=== PATIENT | female | born 1970 | race Caucasian/White ===

== ENCOUNTER 2020-10-01 02:56 | Outpatient (CLI) | payer BC, SELFPAY ==
[2020-10-01 07:54] LABS: Abs Immature Grans 0.01 10^3/uL (0.0-0.06); Absolute Basophil Count 0.02 10^3/uL (0.0-0.2); Absolute Eosinophil Count 0.03 10^3/uL (0.0-0.7); Absolute Lymphocyte Count 1.15 10^3/uL (1.2-3.4); Absolute Monocyte Count 0.41 10^3/uL (0.1-0.8); Absolute Neutrophil Count 2.58 10^3/uL (1.2-6.7); Basophils % 0.5; Eosinophils % 0.7; HCT 34.6 % (36.0-46.0); HGB 11.4 g/dL (11.2-15.7); Immature Grans % 0.2; Lymphocytes % 27.4; MCH 28.3 pg (27.0-33.0); MCHC 32.9 % (32.0-36.0); MCV 85.9 fL (80-95); MPV 11.1 fL (8.0-11.0); Monocytes % 9.8; Neutrophils % 61.4; Nucleated RBC 0 %; Platelet Count 282 10^3/uL (130-400); RBC 4.03 10^6/uL (3.93-5.22); RDW 14.6 % (11.7-14.6); RDW-SD 45.2 fL
[2020-10-01 08:42] LABS: Anion Gap 13.6 mmol/L (3-11); BUN 19 mg/dL (7-18); CO2 23.4 mmol/L (21.0-32.0); CREATININE 0.64 mg/dL (0.55-1.02); Calcium 8.8 mg/dL (8.5-10.1); Calculated LDL 111 mg/dL (<100); Chloride 104 mmol/L (98-107); Cholesterol 200 mg/dL (<200); Glucose 124 mg/dL (74-106); HDL Cholesterol 75 mg/dL (40-60); Potassium 4.3 mmol/L (3.5-5.1); Sodium 141 mmol/L (136-145); Triglyceride 72 mg/dL (<150)
== END 2020-10-01 03:16 ==
PROVIDERS: PCP Family Medicine; Visit Provider Family Medicine
DX: D64.9 Anemia, unspecified (principal); Z13.1 Encounter for screening for diabetes mellitus; Z13.6 Encounter for screening for cardiovascular disorders
CPT/HCPCS: 36415; 80048; 80061; 85025

== ENCOUNTER 2020-10-06 04:13 | Outpatient (CLI) | payer BC, SELFPAY ==
[2020-10-06 09:20] LABS: Hemoglobin A1C 5.7 % (<5.7)
== END 2020-10-06 04:33 ==
PROVIDERS: PCP Family Medicine; Visit Provider Family Medicine
DX: R73.9 Hyperglycemia, unspecified (principal)
CPT/HCPCS: 36415; 83036

== ENCOUNTER 2022-02-08 01:56 | Outpatient (CLI) | payer BC, SELFPAY ==
[2022-02-08] MEDS: Normal Saline Flush 10 ML SYR IVP (08:01)
[2022-02-08] MEDS: Gadoterate meglumine 20 ML VIAL 13 ML IVP (08:01)
--- NOTE | 2022-02-08 08:42 | DI.MRI_ITS ---
Exam(s) MR IAC BRAIN WO/W EXAM: MR IAC BRAIN WO/W CLINICAL HISTORY: Left sensorineural hearing loss, tinnitus lt ear, vertigo. TECHNIQUE: Multiplanar multisequence MRI of the brain and internal auditory canals was performed. CONTRAST MATERIAL: IV Contrast: 13 mL of Magnevist contrast administered. COMPARISON: No exams were available for comparison FINDINGS: VENTRICLES AND EXTRA AXIAL SPACES: Normal in size and morphology for the patient's age. HEMORRHAGE: None. CEREBRAL PARENCHYMA: No focus of restricted diffusion to suggest acute infarct. No space-occupying le steven identified. MIDLINE SHIFT: None. BRAINSTEM/CEREBELLUM: Normal. CALVARIUM: Normal. ENHANCEMENT: No suspicious enhancement identified. VISUALIZED PARANASAL SINUSES/MASTOIDS: There is a mucous retention cyst or polyp in the right maxilla ry sinus. The remaining visualized paranasal sinuses and mastoid air cells are clear. [place]: Normal flow void. PITUITARY GLAND: Unremarkable. IAC/CP ANGLE: The internal auditory canals are within normal limits. The cerebellar pontine angles ar e unremarkable. No enhancing lesions are seen. Visualized portion of the facial nerves appear within normal limits. OTHER FINDINGS: None. IMPRESSION: Unremarkable MRI of the brain and internal auditory canals. DATA REPOSITORY:
== END 2022-02-08 02:16 ==
LOC: DI 01:57
PROVIDERS: PCP Family Medicine; Visit Provider Otolaryngology
DX: H90.42 Sensorineural hearing loss, unilateral, left ear, with unrestricted hearing on the contralateral side (principal); H93.12 Tinnitus, left ear; R42 Dizziness and giddiness
CPT/HCPCS: 70553

== ENCOUNTER 2022-07-19 08:02 | Emergency (ER) | payer BC, SELFPAY ==
[2022-07-19 08:06] VITALS: BP 113/81; PULSE 70; TEMP 37; O2SAT 99
--- NOTE | 2022-07-19 08:20 | W.ED.GENAD ---
Discharge Plan Disposition Patient Disposition: HOME Condition: Stable Discharge Details Clinical Impression: Strain of lumbar paraspinous muscle Primary Care Provider: Sara Horvath ED Provider: Uzma Britton Home Meds and New Rx's Prescriptions: New cyclobenzaprine 10 mg tablet 10 mg PO TID PRN (Reason: muscle spasm) Qty: 10 0RF No Action fluticasone propionate [Flonase Allergy Relief] 50 mcg/actuation spray,suspension 2 spray intranasal DAILY Qty: 16 0RF Rx Instructions: administer into each nostril vitamin B complex Tablet 1 tab PO DAILY ibuprofen [Advil] 200 mg tablet 200 mg PO Q6H PRN hydrochlorothiazide 12.5 mg capsule 12.5 mg PO DAILY 90 Days Qty: 90 4RF Discharge Instructions Instructions: Low Back Strain (ED), Lower Back Exercises (ED) Additional Instructions: Alternate ice and heat. Take the muscle relaxers as directed these may make you sleepy. You may try lidocaine patches which she can get [id number]. Follow up with primary care provider in 3-5 days. Return to ED sooner if any worsening or concerns. Increase oral fluids. Please take Tylenol or Ibuprofen with food every 4-6 hours as needed for pain and swelling. Referrals: Sara Horvath [Primary Care Provider] - 3 days Medical Decision Making L-spine x-rays ordered, urinalysis and lidocaine patch. 0824: Informed by staff combat information center officer, Patient refusing xrays. Urinalysis shows no evidence of UTI. Patient was given Flexeril here in the department and a prescription for Flexeril instructed on low back exercises and follow-up care. Discussed return instructions. This text was generated using [email or web address] system, please disregard any oddities of phrase or misspellings. HPI General Mode of arrival: ambulatory. Date/Time Provider Initiated Documentation: 07/19/22 08:06. Limitations to Documentation: no limitations. Information obtained by: patient, RN notes reviewed and old records reviewed. HPI Narrative: 52-year-old female presents to the ER with chief complaints of lower back pain which has been ongoing since last week. Patient reports that she was at the gym and was doing box jumps and squats and since then has had right lower back pain which radiates to the left lower back. She denies any radiation into her legs. No signs of cauda equina no loss of bowel or bladder control or saddle anesthesia. She denies any dysuria. She did take 650 mg of Tylenol at 5 this morning. She reports it is exacerbated by movement. Related Data Home Medications Medication Instructions Recorded Confirmed ibuprofen 200 mg tablet (Advil) 200 mg PO Q6H PRN 08/26/21 07/19/22 vitamin B complex 1 tab PO DAILY 08/26/21 07/19/22 fluticasone propionate 50 2 spray intranasal DAILY #16 grams 10/19/21 07/19/22 mcg/actuation nasal spray,suspension (Flonase Allergy Relief) hydrochlorothiazide 12.5 mg capsule 12.5 mg PO DAILY 90 days #90 caps 11/23/21 07/19/22 cyclobenzaprine 10 mg tablet 10 mg PO TID PRN muscle spasm #10 07/19/22 tabs Previous Rx's Medication Instructions Recorded fluticasone propionate 50 2 spray intranasal DAILY #16 grams 10/19/21 mcg/actuation nasal spray,suspension (Flonase Allergy Relief) hydrochlorothiazide 12.5 mg capsule 12.5 mg PO DAILY 90 days #90 caps 11/23/21 cyclobenzaprine 10 mg tablet 10 mg PO TID PRN muscle spasm #10 07/19/22 tabs Allergies Allergy/AdvReac Type Severity Reaction Status Date / Time No Known Allergies Allergy Unverified 07/19/22 08:12 General Stated Complaint: Nk/Back Pain VANDANA: 4 Review of Systems All systems reviewed & are unremarkable except as noted in HPI and below Musculoskeletal Musculoskeletal: Reports back pain PFSH All Active Problems (Updated 07/19/22 @ 09:15 by Uzma Britton NP) Strain of lumbar paraspinous muscle (Acute) Meniere disease (Acute) Meniere's disease of left ear (Acute) COVID-19 long hauler (Acute) Anosmia (Acute) Lateral epicondylitis (Acute) Anemia (Chronic) Sensorineural hearing loss (SNHL) of left ear with unrestricted hearing of right ear (Acute) Tinnitus of left ear (Acute) Vertigo (Acute) Endolymphatic hydrops of left ear (Acute) Surgical History Hx of tubal ligation Family History Father Cancer prostate cancer, leukemia Mother Diabetes Social History Smoking/Tobacco Use Status: Never Smoking risk assessment performed?: Yes Alcohol Intake: current Alcohol Intake frequency: a few times a month Drug use: Never Substance use type: does not use Household members: children current occupation: working in sales Do you feel safe at home: Yes Do you feel safe in your relationship?: Yes Exam Narrative Exam Narrative: Constitutional: Alert and oriented x3. Appears stated age. Normal body habitus. Head: Normocephalic, no trauma. Eyes: Pupils PERRL, Red reflex noted, EOM's intact. Eyelids symmetrical without lesions, discharge, or swelling. Chest: RRR, Normal S1, S2, distal pulses intact. Resp: Lungs clear to auscultation bilaterally, no wheezes, rales, or rhonchi. Abdomen: Soft, non-distended, Normoactive bowel sounds all 4 quads. Musculoskeletal: Normal gait, 5/5 strength to all four extremities. Skin: No suspicious rashes or lesions. Capillary refill less than 2 sec. Neurologic: Cranial nerves II-XII intact. Alert and oriented x 3. Motor: No deficits noted. Sensory: Intact bilaterally all 4 extremities. Reflexes: DTR's intact bilaterally.. Hematologic/Lymphatic: No ecchymosis, no lymphadenopathy. Course Vital Signs Vital signs: Vital Signs Temperature 37.0 C 07/19/22 08:06 Pulse 70 07/19/22 08:06 Blood Pressure 113/81 07/19/22 08:06 Pulse Oximetry 99 07/19/22 08:06 Temperature 37.0 C 07/19/22 08:06 Temperature Source Temporal Artery Scan 07/19/22 08:06 Pulse 70 07/19/22 08:06 Respiratory Effort Non-Labored 07/19/22 08:09 Blood Pressure 113/81 07/19/22 08:06 Blood Pressure Position Sitting 07/19/22 08:06 Pulse Oximetry 99 07/19/22 08:06 Oxygen Delivery Method Room Air 07/19/22 08:06 Oxygen Flow Rate 0 07/19/22 08:06 Pain Level 0 07/19/22 08:09 Comment 07/19/22 08:06 PAWSS Have you Been Recently Intoxicated or Drunk Within the Last 30 days?: No Have you Ever Experienced Previous Episodes of Alcohol Withdrawal?: No Have you ever Experienced Withdrawal Seizures?: No Have you ever Experienced Delirium Tremens(DT)s?: No Have you ever undergone Alcohol Rehabilitation Treatment (i.e, inpt ot outpatient treatment programs)?: No Have you ever Experienced Blackouts?: No Have you ever Combined Alcohol with other Downers within the last 90 days?: No Have you ever Combined Alcohol with any other Substance of Abuse during the last 90 days?: No Result: 0
[2022-07-19] MEDS: Lidocaine 5% Patch 1 PATCH TP (08:27)
[2022-07-19 08:40] LABS: Bilirubin Negative (Negative); Blood Negative (Negative); Clarity Clear (Clear); Glucose Negative (Negative); Ketones Negative (Negative); Leukocyte Esterase Negative (Negative); Nitrite Negative (Negative); Specific Gravity 1.015 (1.005-1.025); Urobilinogen 0.2 EU/dL (Up TO 0.2); pH 7.5 (5-8)
[2022-07-19] MEDS: Cyclobenzaprine 10 MG TAB, 3 TABS/BTL PO (09:21)
[2022-07-19 09:22] VITALS: BP 114/71; PULSE 66; RESP 16; TEMP 36.8; O2SAT 98
== END 2022-07-19 09:28 | disposition home or self-care (01) ==
PROVIDERS: Emergency Provider Registered Nurse Emergency; PCP Family Medicine
DX: S39.012A Strain of muscle, fascia and tendon of lower back, initial encounter (principal); X58.XXXA Exposure to other specified factors, initial encounter; Y93.39 Activity, other involving climbing, rappelling and jumping off; Y92.39 Other specified sports and athletic area as the place of occurrence of the external cause
CPT/HCPCS: 99283; 81003; 99284

== ENCOUNTER 2024-05-24 22:13 | Outpatient (REF) | payer BC, SELFPAY ==
[2024-05-24 16:11] LABS: Abs Immature Grans 0.01 10^3/uL (0.0-0.06); Absolute Basophil Count 0.04 10^3/uL (0.0-0.2); Absolute Eosinophil Count 0.04 10^3/uL (0.0-0.7); Absolute Monocyte Count 0.34 10^3/uL (0.1-0.8); Absolute Neutrophil Count 1.86 10^3/uL (1.2-6.7); Basophils % 1.1 %; Eosinophils % 1.1 %; HCT 34.9 % (36.0-46.0); Immature Grans % 0.3 %; Lymphocytes % 34.4 %; MCH 30.7 pg (27.0-33.0); MCHC 34.4 % (32.0-36.0); MCV 89 fL (80-95); MPV 11.3 fL (8.0-11.0); Monocytes % 9.7 %; Neutrophils % 53.4 %; Platelet Count 257 10^3/uL (130-400); RBC 3.91 10^6/uL (3.93-5.22); RDW 13.1 % (11.7-14.6); RDW-SD 42.6 fL; WBC 3.49 10^3/uL (4.4-10.8)
[2024-05-24 16:34] LABS: Hemoglobin A1C 5.9 % (<5.7)
[2024-05-24 16:48] LABS: BUN 12 mg/dL (7-18); CREATININE 0.6 mg/dL (0.55-1.02); Calculated LDL 100 mg/dL (<100); Chloride 104 mmol/L (98-107); Cholesterol 179 mg/dL (<200); Estimated GFR 108.61 (mL/min/1.73m2); Ferritin 13 ng/mL (8-252); Glucose 118 mg/dL (74-106); HDL Cholesterol 67 mg/dL (40-60); Potassium 4.4 mmol/L (3.5-5.1); Sodium 140 mmol/L (136-145); Triglyceride 64 mg/dL (<150)
[2024-05-24 16:49] LABS: Iron 46 ug/dL (50-170); Total Iron Binding Capacity 419 ug/dL (250-450); Transferrin Sat 11 % (15-50)
== END 2024-05-24 22:14 | disposition home or self-care (01) ==
LOC: NCHCN 22:13
PROVIDERS: PCP Family Medicine; Visit Provider Family Medicine
DX: R73.03 Prediabetes (principal); E87.6 Hypokalemia; Z13.220 Encounter for screening for lipoid disorders
CPT/HCPCS: 80048; 80061; 82728; 83036; 83540; 83550; 85025

== ENCOUNTER 2024-08-09 06:20 | Day surgery (SDC) | payer BC, SELFPAY ==
[2024-08-09 06:45] VITALS: BP 122/88; PULSE 68; RESP 16; TEMP 36.4; O2SAT 100
[2024-08-09] MEDS: Lactated Ringers 1,000 ML 80 ML IV (07:24)
--- NOTE | 2024-08-09 07:30 | W.ANESPRE ---
General Info Date of Service Date Performed: 08/09/24 Height: 5 ft 4 in Weight: 66.5 kg Body Mass Index (BMI): 25.1 Surgical Procedure: Operation Date: 08/09/24 07:35 Proposed Procedure Side Surgeon p Colonoscopy Margaret CHAPMAN MD Actual Procedure Side Surgeon p Colonoscopy Not Applicable Margaret CHAPMAN MD Meds Allergies and Home Medications Allergies Allergy/AdvReac Type Severity Reaction Status Date / Time No Known Allergies Allergy Verified 08/09/24 06:34 Home Medication ?Medication ?Instructions ?Recorded ibuprofen 200 mg tablet (Advil) 200 mg PO Q6H PRN 08/26/21 vitamin B complex 1 tab PO DAILY 08/26/21 hydrochlorothiazide 12.5 mg capsule 12.5 mg PO DAILY 90 days #90 caps 02/06/23 multivitamin 1 tab PO DAILY 07/11/24 bisacodyl 5 mg tablet,delayed 5 mg PO ONCE Colonoscopy Bowel 08/02/24 release Prep #4 tabs polyethylene glycol 3350 17 238 g PO ONCE #238 grams 08/02/24 gram/dose oral powder Current Visit Medications: Current Medications Generic Name Dose Route Start Last Admin Trade Name Freq PRN Reason Stop Dose Admin Ringer's Solution 1,000 mls @ 80 mls/hr 08/09/24 06:00 08/09/24 07:24 IV 08/09/24 23:59 80 mls/hr INFUSION SIM Administration IV Miscellaneous Supplies 1 each 08/09/24 06:00 Iv Access IV 08/09/24 23:59 DIRECTED SIM Sodium Chloride 0 ml 08/09/24 06:00 Normal Saline Flush 10 Ml Syr IV 08/09/24 23:59 PRN PRN Sodium Chloride 0 ml 08/09/24 06:00 Normal Saline 10 Ml Vial IJ 08/09/24 23:59 DIRECTED PRN Sterile Water 0 ml 08/09/24 06:00 Water,Injection,Sterile 10 Ml Vial IJ 08/09/24 23:59 DIRECTED PRN PFSH Active Problems Active Problems: Problem Status Onset Code Meniere disease Acute H81.09 Meniere's disease of left ear Acute H81.02 COVID-19 long hauler Acute U09.9 Anosmia Acute R43.0 Lateral epicondylitis Acute M77.10 Anemia Chronic D64.9 Sensorineural hearing loss (SNHL) of left ear with unrestricted hearing of right ear Acute H90.42 Tinnitus of left ear Acute H93.12 Vertigo Acute R42 Endolymphatic hydrops of left ear Acute H81.02 Medical History Medical History Prediabetes Hypokalemia Surgical History Surgical History Hx of tubal ligation Tobacco Smoking/Tobacco Use Status: Never Alcohol Alcohol Intake: current Alcohol intake frequency: a few times a month Substance Use Substance use: Never Substance use type: does not use Vital Signs and Lab Results Vital Signs Most Recent Vital Signs in EMR: Most Recent Vital Signs Temp Pulse Resp BP Pulse Ox 36.4 C L 68 16 122/88 100 08/09/24 06:45 08/09/24 06:45 08/09/24 06:45 08/09/24 06:45 08/09/24 06:45 Lab Results Blood Type / Crossmatch: No Data to Display Complete Blood Count: No Data to Display Complete Metabolic Panel: No Data to Display Liver Function Panel: No Data to Display Coagulation Panel: No Data to Display Cardiac Panel: No Data to Display Arterial Blood Gas: No Data to Display Venous Blood Gas: No Data to Display Pancreas Panel: No Data to Display Thyroid Panel: No Data to Display Infectious Disease: No Data to Display Blood Cultures: No Data to Display Toxicology Panel: No Data to Display Panel: No Data to Display Anesthesia Assessment and Plan Anesthesia History Personal History: No History of Anesthesia Complications Family History: No Family History of Anesthesia Complications Exercise Tolerance Exercise Tolerance: Metabolic Equivalents>4 Pertinent Negatives Pertinent Negatives: No Symptoms of GERD Cardiac & Pulmonary Exam Cardiac Exam: Normal S1/S2 Heart Sounds Pulmonary Exam: Clear Bilateral Breath Sounds Implantable Cardiac Device Does patient have a Pacemaker or an ICD?: No Airway Exam Known Difficult Airway: No Mallampati Class: 2 Mouth Opening: Normal (> 3cm) Thyromental Distance: Greater than 3 cm Neck Range of Motion: Full ROM Neck Circumference: Normal Teeth Condition: Normal Dentition ASA Classification ASA Score: ASA 2 Emergency Case?: No NPO Status NPO Status: NPO Clears >2 hours, Solids >8 hours Status Status: Negative HCG Anesthesia Plan Resuscitation Status: Full Code Anesthesia Technique: General Anesthesia Airway Planned: Natural Airway Monitors Used: Standard Monitors
[2024-08-09 07:31] VITALS: BMI 25.1
[2024-08-09 08:04] VITALS: BP 144/76; PULSE 65; RESP 16; TEMP 37.2; O2SAT 99
--- NOTE | 2024-08-09 08:09 | W.PM.OP ---
Date of service: 08/09/24 Time of Service: 08:09 Operative Note Operative Note DATE OF PROCEDURE: 08/09/24 PRE-OP DIAGNOSIS: Colon cancer screening POST-OP DIAGNOSIS: same Diverticular disease PROCEDURE: Colonoscopy SURGEON: Margaret CHAPMAN ANESTHESIA TYPE: MAC Refer to Anesthesia Record PATHOLOGY: none sent COMPLICATIONS: None Patient was transported to: PACU Patient's condition: stable Findings: Normal-appearing mucosa, mild diverticular disease Procedure Description: After obtaining informed consent, patient was brought back to the operating room. She was turned to her left side and connected to the monitors. Timeout was performed. Propofol was administered by the nurse complex human resources manager. I began by performing a digital rectal exam. This was unremarkable. I inserted the colonoscope and advanced the length of the colon. I attained the cecum as identified by the appendiceal orifice and the ileocecal valve. I did not intubate the ileocecal valve. Prep was good. The cecum had a normal appearance. I withdrew along the ascending colon and transverse colon. In the transverse colon she had a few scattered diverticula. I withdrew along the descending colon and into the sigmoid colon. In the sigmoid colon she again had scattered diverticula. I would see into the rectum. I did retroflex. This was all unremarkable. I decompressed the sigmoid and the rectum and withdrew the scope entirely. Patient tolerated well. She went to recovery in stable condition. Disposition: Patient will be discharged home later today. She should have a repeat colonoscopy in 10 years.
--- NOTE | 2024-08-09 08:17 | W.ANESPOSTOP ---
Postoperative Evaluation Date, Time and Location Date Performed: 08/09/24 Time Performed: 08:17 Patient Location: Day Surgery Unit Vital Signs Most Recent Imported Vital Signs: Most Recent Vital Signs Temp Pulse Resp BP Pulse Ox 37.2 C 65 16 144/76 H 99 08/09/24 08:04 08/09/24 08:04 08/09/24 08:04 08/09/24 08:04 08/09/24 08:04 Pain Score Most Recent Pain Score: Most Recent Pain Score Pain Level 0 08/09/24 08:04 Assessment Mental Status: Awake (Alert & Oriented to Patient Baseline) Airway and Respiratory Function: Patent airway with normal (patient baseline) respiratory exam Cardiovascular Function: Hemodynamically Stable Hydration Status: Adequately Hydrated Nausea & Vomiting: No Nausea or Vomiting Pain: Pt. Denies Any Pain Peripheral Nerve Block: Patient did not receive a nerve block
[2024-08-09 08:32] VITALS: BP 143/85; PULSE 52; RESP 16; TEMP 37.2; O2SAT 100
== END 2024-08-09 08:55 | disposition home or self-care (01) ==
PROVIDERS: PCP Family Medicine; Visit Provider Surgery
PROC: 0DJD8ZZ Inspection of Lower Intestinal Tract, Via Natural or Artificial Opening Endoscopic (ICD-10-PCS; CPT 45378; principal; 2024-08-09 07:30)
DX: Z12.11 Encounter for screening for malignant neoplasm of colon (principal); K57.30 Diverticulosis of large intestine without perforation or abscess without bleeding
CPT/HCPCS: 45378; 00123; 81025; J2704

== ENCOUNTER 2025-07-11 15:35 | Outpatient (REF) | payer BC, SELFPAY ==
[2025-07-11 15:41] LABS: Abs Immature Grans 0.02 10^3/uL (0.0-0.06); HCT 36.7 % (36.0-46.0); HGB 12.7 g/dL (11.2-15.7); Immature Grans % 0.6 %; MCH 31.2 pg (27.0-33.0); MCHC 34.6 % (32.0-36.0); MCV 90 fL (80-95); MPV 10.7 fL (8.0-11.0); Platelet Count 288 10^3/uL (130-400); RBC 4.07 10^6/uL (3.93-5.22); RDW 11.8 % (11.7-14.6); RDW-SD 38.4 fL; WBC 3.55 10^3/uL (4.4-10.8)
[2025-07-11 16:28] LABS: ALT 27 U/L (14-59); AST 18 U/L (15-37); Albumin 4.3 g/dL (3.4-5.0); Alkaline Phosphatase 93 U/L (46-116); Anion Gap 7.2 mmol/L (3-11); BUN 16 mg/dL (7-18); Bilirubin, Total 0.4 mg/dL (0.2-1.0); CO2 30.8 mmol/L (21.0-32.0); Calcium 9.3 mg/dL (8.5-10.1); Calculated LDL 126 mg/dL (<100); Chloride 100 mmol/L (98-107); Cholesterol 223 mg/dL (<200); Estimated GFR 67.36 (mL/min/1.73m2); Ferritin 44 ng/mL (8-252); Glucose 125 mg/dL (74-106); HDL Cholesterol 77 mg/dL (>or=50); Potassium 4.4 mmol/L (3.5-5.1); Sodium 138 mmol/L (136-145); Total Protein 7.6 g/dL (6.4-8.2); Triglyceride 104 mg/dL (<150); Vitamin B12 568 pg/mL (193-986)
[2025-07-11 16:37] LABS: Folate > 20.0 ng/mL (8.6-20.0)
[2025-07-11 16:41] LABS: Iron 94 ug/dL (50-170); Total Iron Binding Capacity 380 ug/dL (250-450); Transferrin Sat 25 % (15-50)
== END 2025-07-11 15:36 | disposition home or self-care (01) ==
LOC: NCHCN 15:35
PROVIDERS: PCP Family Medicine; Visit Provider Family Medicine
DX: R73.03 Prediabetes (principal); D64.9 Anemia, unspecified
CPT/HCPCS: 80053; 80061; 82607; 82728; 82746; 83540; 83550; 85025